=== PATIENT | female | born 1940 | race Caucasian/White ===

== ENCOUNTER 2016-09-24 16:18 | Emergency (ER) | payer OTHER ==
[~2016-09-24] VITALS: Ht 152.4 cm; Wt 72.4 kg
[~2016-09-24 16:18] MED LIST: BYSTOLIC10 MG PO; DILANTIN30 MG PO; DOXAZOSIN MESYLA4 MG PO; FLOVENT DISKUS1 DIS2 IH; LOSARTAN-HCTZ1 EAC2 PO; PHENYTOIN SODI100 M1 PO; PROTONIX40 MG PO; ST JOSEPH ASPIR81 M2 PO; VITAMIN D-32000 UNIT PO; ZANTAC75 M2 PO
[2016-09-24 17:37] LABS: HEMATOCRIT 42.2 % (36.0-46.0); MCH 31.6 PG (29.0-34.0); MCHC 33.9 G/DL (30.0-36.0); MCV 93.2 FL (83-99); MEAN PLAT.VOLUME 10.4 uM^3 (9.5-12.4); PLATELET COUNT 192 K/uL (156-360); RBC DIS.WIDTH-CV 12.2 % (11.8-14.6); RBC DIS.WIDTH-SD 42.1 % (39-53); RED BLOOD COUNT 4.53 M/uL (3.80-5.20); WHITE BLOOD COUNT 8.4 K/uL (4.1-10.2)
[2016-09-24 17:54] LABS: CHLORIDE 103 mEq/L (99-109); POTASSIUM 3.8 mEq/L (3.7-5.4); SODIUM 139 mEq/L (136-147)
[2016-09-24 17:56] LABS: GLUCOSE 165 mg/dL (70-99)
[2016-09-24 17:58] LABS: ANION GAP 12 MEQ/L (2-14); TOTAL BILIRUBIN 0.8 mg/dL (0.0-1.0)
[2016-09-24 18:00] LABS: ALKALINE PHOSPHATASE 78 IU/L (3-129); GFR ESTIMATE (CALCULATED) > 59 mL/min/
[2016-09-24 18:01] LABS: UREA NITROGEN (BUN) 17 mg/dL (9-23)
[2016-09-24 18:07] LABS: TROP-I INTERPRETATION NEGATIVE; TROPONIN-I < 0.01 ng/mL (0.0-0.30)
[2016-09-24 19:07] LABS: ADD MIUA? YES; BILIRUBIN NEGATIVE; BLOOD NEGATIVE; COLOR YELLOW ((YELLOW)); GLUCOSE (STRIP) NEGATIVE; KETONES 5; LEUKOCYTES NEGATIVE; NITRITE NEGATIVE; PROTEIN (STRIP) 30; UROBILINOGEN 0.2 MG/DL (0.2-1.0)
[2016-09-24 19:40] LABS: BACTERIA RARE /HPF; EPITHELIAL CELLS RARE /HPF; MUCUS TRACE /LPF; RED BLOOD CELLS 0-5 /HPF (0-5); UCUL ADDED? NO; WHITE BLOOD CELLS 0-5 /HPF (0-5)
[2016-09-24] MEDS ORDERED: ANTIVERT12.5 MG PO (19:48)
[2016-09-24 20:27] VITALS: BP 180/66
== END 2016-09-24 20:29 | disposition home or self-care (01) ==
LOC: EME 16:18 → RME 16:18
PROVIDERS: Physician Assistant
DX: R42 Dizziness and giddiness (principal); R51 Headache; R11.0 Nausea; H53.8 Other visual disturbances; Z86.011 Personal history of benign neoplasm of the brain; I10 Essential (primary) hypertension; Z79.82 Long term (current) use of aspirin
CPT/HCPCS: 70450; 80053; 81003; 84484; 85027; 93005; 99281; 99285; J7040